=== PATIENT | male | born 1965 ===

== ENCOUNTER 2023-07-08 12:50 | Inpatient (IN) | payer MEDICAID, SELFPAY ==
[2023-07-08] VITALS (7 sets, daily range): BP systolic 130–152; BP diastolic 78–100; PULSE 89–115; RESP 16–20; TEMP 36.6–37.3; O2SAT 93–98; BMI 27.7
--- NOTE | 2023-07-08 | ECG_ITS ---
Test Reason : CHEST PAIN Blood Pressure : / mmHG Vent. Rate : 124 BPM Atrial Rate : 000 BPM P-R Int : 000 ms QRS Dur : 082 ms QT Int : 298 ms P-R-T Axes : 000 -35 -13 degrees QTc Int : 428 ms Atrial fibrillation with rapid ventricular response Left axis deviation Abnormal ECG No previous ECGs available Referred By: Preeti Pal Electronically Signed By:DAVID RABAGO MD
--- NOTE | ~2023-07-08 | XR_ITS ---
EXAMINATION: XR CHEST CLINICAL INFORMATION: Chest pain COMPARISON: None available. TECHNIQUE: 2 views of the chest were obtained. FINDINGS: The lungs are well-expanded without acute pneumonic process. Heart size is normal. There is bilateral parahilar increased pulmonary vascularity with haziness in both mid lungs suspicious for pulmonary congestion or edema. No pleural effusion seen. No gross bony abnormality. XR/XR chest 2V IMPRESSION: Suspect mild pulmonary vascular congestion or edema. No pleural effusion seen.
--- NOTE | 2023-07-08 13:11 | ED_ITS ---
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 He reports 1 or 2 days ago he got into a verbal altercation with a co-worker, he was very upset about this, he states that all of his symptoms began after this altercation. He has been experiencing a headache, diffusely throughout that is intermittent, dizziness, substernal chest pain, nausea without vomiting, generalized abdominal discomfort described as cramping, tactile fevers. He reports that he could not go to work today because he was still feeling this way. He denies any known sick contacts. Related Data Home Medications Medication Instructions Recorded Confirmed No Known Home Meds 07/08/23 07/08/23 Allergies Allergy/AdvReac Type Severity Reaction Status Date / Time Penicillins Allergy Rash Verified 07/08/23 13:16 Review of Systems 2 Review of Systems: Yes all other systems are reviewed and are negative PMFSH Past Medical History Attestation statement: The following information was validated with the patient. Source: old records reviewed Surgical History Previous back surgery Social History Social History Smoked in Last 30 Days: Yes Use of substances other than those prescribed or required for medical reasons: No Advance Directives: No Advance Directives Information Provided: No Physical Exam ED Vital Signs: Vital Signs - 24 hr 07/08/23 13:10 07/08/23 16:55 07/08/23 18:02 Temperature 98.1 F 97.9 F 99.1 F Pulse Rate 114 H 115 H 97 Pulse Rate [Left Apical] Respiratory Rate 18 16 20 Blood Pressure 135/78 152/100 H 130/92 H Pulse Oximetry 93 95 94 Oxygen Delivery Method Room Air Room Air Room Air 07/08/23 18:14 07/08/23 18:28 07/08/23 19:27 Temperature Pulse Rate 102 H 89 Pulse Rate [Left Apical] 96 Respiratory Rate 20 18 Blood Pressure Pulse Oximetry 98 Oxygen Delivery Method Room Air 07/08/23 20:05 Temperature 98.2 F Pulse Rate 112 H Pulse Rate [Left Apical] Respiratory Rate 20 Blood Pressure 131/78 Pulse Oximetry 96 Oxygen Delivery Method Room Air BMI result Body Mass Index 27.7 Appearance: Alert.?Oriented to person, place and time. No acute distress.?Normal affect. Eyes: Pupils equal, round and reactive to light.? EOMI. No nystagmus. ENT: Pharynx normal.??TM normal bilaterally Neck: Normal inspection.? Neck supple.? No cervical lymphadenopathy. ?No nuchal rigidity CVS: Heart sounds normal. Irregularly irregular heart rate and rhythm.? Pulses normal.?? Respiratory: No respiratory distress.? Lung sounds clear to auscultation bilaterally?? Abdomen: Soft and non-tender. Normoactive bowel sounds. No pulsatile mass.?? Skin: Skin warm and dry.? Normal skin color.? Normal skin turgor.?? Extremities: No lower extremity edema.? No calf ttp? Neuro: Moves all extremities spontaneously. Sensation intact bilaterally. CN II- XII intact. No focal neuro deficits. Ambulates with normal steady gait. Course Course Course Narrative: RME- 57 year old male presents for evaluation of feeling sick. He complains of headache and fevers. He is reporting a little depression. But he denies SI at this time. Plan for labs, viral swabs. He currently is not interested in speaking to anybody from the care team. Reevaluation(s) Reevaluation #1: Received EKG, indicates atrial fibrillation with RVR, ventricular rate of 124, QTC 428, no ST elevation, no ST depression. Patient denies any known history of atrial fibrillation, no prior EKGs available for review. ChadS-Vasc score 1, will initiate Eliquis, and trial diltiazem for rate control, anticipate admission to hospital, patient made aware of these findings. Time: 17:00 Reevaluation #2: Rate controlled with diltiazem, drip was initiated. Spoke with hospitalist, Dr. Dewitt accepts patient for admission to medicine service Time: 19:38 Medications Administered Generic Name Dose Route Start Last Admin Trade Name Freq PRN Reason Stop Dose Admin Diltiazem HCl 30 mg 07/08/23 21:00 07/08/23 21:38 Diltiazem Hcl 30 Mg Tablet PO 30 mg QID KAI Administration Protocol Diltiazem HCl 125 mg/ Sodium 125 mls @ 0 mls/hr 07/08/23 18:00 07/08/23 20:06 Chloride IVCONT 10 mg/hr .Q0M KAI 10 mls/hr Titration Protocol Per Protocol Discontinued Medications Generic Name Dose Route Start Last Admin Trade Name Nicolas PRN Reason Stop Dose Admin Apixaban 5 mg 07/08/23 17:22 07/08/23 17:36 Apixaban 5 Mg Tablet PO 07/08/23 17:23 5 mg ONCE ONE Administration Diltiazem HCl 20 mg 07/08/23 17:22 07/08/23 17:36 Diltiazem Hcl 50 Mg/10 Ml Vial IVPUSH 07/08/23 17:23 20 mg STAT STA Administration Medical Decision Making Medical Decision Making [facility] Narrative: Patient is a 57-year-old male who presents emergency department for evaluation of multiple complaints as per HPI, predominantly noting headache chest pain and nausea for 2-3 days. Symptoms began after getting into a verbal altercation while at work that have persisted since then. Will obtain CBC to evaluate for leukocytosis/ anemia, CMP and lipase to evaluate for abnormal electrolytes /abnormal renal function/ abnormal hepatic/biliary function, EKG and troponin to evaluate for ischemia/ACS. Chest x-ray to evaluate for consolidation/ infiltrate/ mass/ pulmonary congestion and Urinalysis. Differential Diagnosis Differential Diagnoses: The differential diagnosis associated with the presentation includes (Viral syndrome, stress reaction, ACS, arrhythmia, tension headache, less likely ICH, PE) Admission/Observation Consideration of admission/observation: Escalation of care including admission/observation considered (Admission, see course narrative) Consult Healthcare Provider Management of the patient was discussed with: Hospitalist Lab Data [facility] Lab Attestation statement: I reviewed the patient's lab results. (See course narrative) 07/08/23 13:25 07/08/23 13:25 Labs: Lab Results 07/08/23 07/08/23 07/08/23 Range/Units 13:25 17:27 17:28 WBC 5.7 (4.8-10.8) X10*3/uL RBC 4.99 (4.60-5.80) X10*6/uL Hgb 15.6 (14.0-18.0) g/dl Hct 46.1 (42.0-52.0) % MCV 92.4 (80.0-98.0) fL MCH 31.3 (27.0-33.0) pg MCHC 33.8 (31.0-36.0) g/dl RDW 12.5 (11.0-16.0) % Plt Count 131 L (160-400) X10*3/uL MPV 10.9 (9.4-12.4) fL Immature Gran % (Auto) 0.2 (0.0-0.4) % Neut % (Auto) 85.9 H (45-73) % Lymph % (Auto) 7.2 L (20-40) % [place] % (Auto) 6.5 (2-11) % Eos % (Auto) 0.0 (0-4) % Baso % (Auto) 0.2 (0-2) % Lymph # (Auto) 0.4 L (1.2-4.9) X10*3/uL [place] # (Auto) 0.4 (0.1-1.2) X10*3/uL Eos # (Auto) 0.0 (0.0-0.4) X10*3/uL Baso # (Auto) 0.0 (0.0-0.2) X10*3/uL Abs Immat Gran (auto) 0.01 (0.00-0.03) X10*3/uL Absolute Neuts (auto) 4.9 (2.0-8.3) x10*3/uL Absolute Nucleated RBC 0.000 (0.0-0.012) X10*3/uL Nucleated RBC % (auto) 0.0 (0.0-0.2) /100WBC PT 15.1 H (11.1-13.3) SEC INR 1.2 H (0.9-1.1) Sodium 141 (135-145) mmol/L Potassium 3.9 (3.3-5.1) mmol/L Chloride 107 (96-108) mmol/L Carbon Dioxide 27 (22-29) mmol/L Anion Gap 11 L (12-20) BUN 17 H (9-16) mg/dL Creatinine 1.20 (0.5-1.4) mg/dL Estim Creat Clear Calc 77.6 Estimated GFR > 60 Random Glucose 90 (60-115) mg/dL Calcium 8.8 (8.4-10.2) mg/dL Magnesium 2.2 (1.6-2.6) mg/dL Troponin I High Sens 5.5 (<3.5-35.0) ng/L B-Natriuretic Peptide 210 H (<100) pg/mL TSH 0.53 (0.32-4.0) uIU/mL COVID-19 (CHRISTOPHER) Negative (Negative) COVID-19 Clin Com See Note Influenza Type A (SFOIYA) Negative (Negative) Influenza Type B (SOFIYA) Negative (Negative) Influenza A & B Note See Note Independent Interpretation I performed an independent interpretation of an: EKG (See course narrative) and Plain X-Ray (I personally interpreted XR and agree with radiologist impression) Radiology Impression Discussion of test interpretation with radiology: I have reviewed the radiologist's reading. Radiologist Impression: XR/XR chest 2V IMPRESSION: Suspect mild pulmonary vascular congestion or edema. No pleural effusion seen. Critical Care Time Critical Care Time Critical Care Time: Yes Total Critical Care Time: 45 Attestation: I personally attest to this critical care time spent taking care of the patient exclusive of all other billable procedures was approximately 45 minutes including initial evaluation of patient, ordering tests, x-ray interpretation, EKG interpretation, medical consultation, documentation, re-evaluation. Discharge Plan Discharge Clinical Impression: Atrial fibrillation with rapid ventricular response Patient Disposition: Admitted As Inpatient
[2023-07-08 13:30] LABS: MANUAL DIFF FLAG NO
[2023-07-08 13:35] LABS: Basophils Percent Auto 0.2 % (0-2); Hematocrit 46.1 % (42.0-52.0); Hemoglobin 15.6 g/dl (14.0-18.0); Imm Gran Abs Auto 0.01 X10*3/uL (0.00-0.03); Imm Gran Pct Auto 0.2 % (0.0-0.4); Lymphocytes Absolute Auto 0.4 X10*3/uL (1.2-4.9); Lymphocytes Percent Auto 7.2 % (20-40); Mean Corpuscular HGB Conc 33.8 g/dl (31.0-36.0); Mean Corpuscular Hemoglobin 31.3 pg (27.0-33.0); Mean Corpuscular Volume 92.4 fL (80.0-98.0); Mean Platelet Volume 10.9 fL (9.4-12.4); Monocytes Absolute Auto 0.4 X10*3/uL (0.1-1.2); Monocytes Percent Auto 6.5 % (2-11); Neutrophils Absolute Auto 4.9 x10*3/uL (2.0-8.3); Neutrophils Percent Auto 85.9 % (45-73); Platelet Count 131 X10*3/uL (160-400); Red Blood Count 4.99 X10*6/uL (4.60-5.80); Red Cell Distribution Width 12.5 % (11.0-16.0); White Blood Count 5.7 X10*3/uL (4.8-10.8)
[2023-07-08 13:44] LABS: Anion Gap 11 (12-20); Blood Urea Nitrogen 17 mg/dL (9-16); Calcium 8.8 mg/dL (8.4-10.2); Carbon Dioxide 27 mmol/L (22-29); Chloride 107 mmol/L (96-108); Creatinine Clr Calc Pharmacy 77.6; Estimated Glomerular Filt Rate > 60; Glucose Random 90 mg/dL (60-115); Potassium 3.9 mmol/L (3.3-5.1); Sodium 141 mmol/L (135-145)
[2023-07-08 13:48] LABS: IDNOW Serial# 08D9AD1C; IDNOW Serial# 152EDE1D; Influenza A Negative (Negative); Influenza B2 Negative (Negative)
[2023-07-08 13:49] LABS: COVID-19 Test Negative (Negative)
[2023-07-08] MEDS: Apixaban 5 MG TABLET PO (17:36)
[2023-07-08] MEDS: dilTIAZem HCL 50 MG/10 ML VIAL 20 MG IVPUSH (17:36)
--- NOTE | 2023-07-08 17:38 | PC.NURSE ---
pt a&ox3, pt c/o chest pain, ekg performed, pt noted to be in afib, iv inserted, labs drawn, pt medicated per order, call [place] within reach, will continue to monitor.
[2023-07-08 17:43] LABS: INTERNATIONAL NORM RATIO 1.2 (0.9-1.1); Prothrombin Time 15.1 SEC (11.1-13.3)
[2023-07-08 17:58] LABS: B Type Natriuretic Peptide 210 pg/mL (<100)
[2023-07-08 17:58] LABS: Troponin-I High Sensitivity 5.5 ng/L (<3.5-35.0)
[2023-07-08 18:12] LABS: TSH reflex Free T4 0.53 uIU/mL (0.32-4.0)
[2023-07-08] MEDS: dilTIAZem HCL 125 MG in 0.9 % Sodium Chloride 100 ML 10 MG IVCONT (18:14)
--- NOTE | 2023-07-08 18:15 | PC.NURSE ---
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
[2023-07-08 18:16] LABS: Magnesium 2.2 mg/dL (1.6-2.6)
--- NOTE | 2023-07-08 18:29 | PC.NURSE ---
dilt drip stopped, pts hr ranging from mid 80s-100. will continue to monitor
--- NOTE | 2023-07-08 19:26 | PC.NURSE ---
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
--- NOTE | 2023-07-08 20:07 | PC.NURSE ---
dilt drip restarted @ 10 after speaking with Ed provider, pts hr has been ranging low 100s-120. will continue to monitor patient.
--- NOTE | 2023-07-08 20:40 | P.HPHOSP_ITS ---
History of Present Illness Date of Service: 07/08/23 Chief Complaint: Palpitations This is a 57-year-old male with no pertinent past medical history and not on prescription medications who presents to the emergency department for evaluation of palpitations. Patient is Romansh speaking and history was obtained with the help of a head stock operator. Patient states he has been having palpitations that started 2 days prior to presentation. It has been constant over the last couple of days. His previous episode was about 3 years ago when he was traveling and had too much caffeine. He denies taking anything for high blood pressure. No history of congestive heart failure, stroke or diabetes. No fever, chills, chest discomfort, shortness of breath, abdominal pain, changes in urinary or bowel habits. States he felt weak and dizzy due to the palpitations and hence could not go to work. In the emergency department, patient was found to be in AFib with RVR and was initiated on IV diltiazem drip Review of Systems 2 Constitutional: Constitutional: Reports lethargy and Reports weakness Cardiovascular: Cardiovascular: Reports rapid heart rate Respiratory: Respiratory: Reports no additional respiratory complaints Gastrointestinal: Gastrointestinal: Reports no additional gastrointestinal complaints Genitourinary: Genitourinary: Reports no additional male genitourinary complaints Neurologic: Reports weakness PMFSH Pertinent family history: No family history of early CAD Surgical History Previous back surgery Social History Smoked in Last 30 Days: Yes Use of substances other than those prescribed or required for medical reasons: No Advance Directives: No Advance Directives Information Provided: No Meds Allergies Allergy/AdvReac Type Severity Reaction Status Date / Time Penicillins Allergy Rash Verified 07/08/23 13:16 Active Medications: Current Medications Diltiazem HCl 125 mg/ Sodium (Chloride) 125 mls @ 0 mls/hr IVCONT .Q0M [facility]; Protocol Last Titration: 07/08/23 20:06 Dose: 10 mg/hr, 10 mls/hr Home Medications Medication Instructions Recorded Confirmed Last Taken Type No Known Home Meds 07/08/23 07/08/23 Unknown History Physical Exam 2 Vital Signs and Narrative: Vital Signs: Last Vital Signs Temp 98.2 F 07/08/23 20:05 Pulse 112 H 07/08/23 20:05 Resp 20 07/08/23 20:05 BP 131/78 07/08/23 20:05 Pulse Ox 96 07/08/23 20:05 O2 Del Method Room Air 07/08/23 20:05 BMI result Body Mass Index 27.7 Middle-aged male lying in bed in no distress Neck supple, no JVD Irregularly irregular, S1-S2 heard Regular breath sounds bilaterally, no wheezing or crackles appreciated Abdomen soft nontender, no guarding, no rigidity Patient is awake, alert and oriented to self, place, time and person ; no focal motor deficit Psych: Normal mood No pedal edema Results Labs 07/08/23 13:25 07/08/23 13:25 Labs: Laboratory Results - last 24 hr 07/08/23 07/08/23 07/08/23 13:25 17:27 17:28 MCV 92.4 MCH 31.3 MCHC 33.8 RDW 12.5 Plt Count 131 L MPV 10.9 Immature Gran % (Auto) 0.2 Neut % (Auto) 85.9 H Lymph % (Auto) 7.2 L [place] % (Auto) 6.5 Eos % (Auto) 0.0 Baso % (Auto) 0.2 Lymph # (Auto) 0.4 L [place] # (Auto) 0.4 Eos # (Auto) 0.0 Baso # (Auto) 0.0 Abs Immat Gran (auto) 0.01 Absolute Neuts (auto) 4.9 Absolute Nucleated RBC 0.000 Nucleated RBC % (auto) 0.0 PT 15.1 H INR 1.2 H Anion Gap 11 L Estim Creat Clear Calc 77.6 Estimated GFR > 60 Random Glucose 90 Calcium 8.8 Magnesium 2.2 B-Natriuretic Peptide 210 H TSH 0.53 COVID-19 (CHRISTOPHER) Negative COVID-19 Clin Com See Note Influenza Type A (SOFIYA) Negative Influenza Type B (SOFIYA) Negative Influenza A & B Note See Note Imaging Radiologist's Impressions: Impressions Chest X-Ray 07/08/23 17:35 IMPRESSION: Suspect mild pulmonary vascular congestion or edema. No pleural effusion seen. Assessment and Plan (1) Atrial fibrillation with rapid ventricular response: Status: Acute Plan This is a 57-year-old male with no pertinent past medical history and not on prescription medications who presents to the emergency department for evaluation of palpitations. #. AFib with RVR, new diagnosis: Will admit patient with cardiac monitoring. Currently on IV diltiazem drip. Will initiate p.o. diltiazem. Obtaining echocardiogram and consulting Cardiology, appreciate assistance. Chads Vasc score 0. TSH within normal limits DVT prophylaxis: Lovenox Full code Admit as inpatient and will require two night minimum hospital stay for monitoring of heart rate (as above), which is not possible in a lesser acute setting. Specialist consult pending Quality Stroke Does the patient have a stroke diagnosis?: No VTE Prior VTE?: No VTE Risk Level:: Medical - moderate - high VTE Device Contraindication: Treatment Not Indicated VTE Drug Contraindication: N/A - Med Ordered
--- NOTE | 2023-07-08 21:06 | PHA.MEDREC ---
Pharmacy Consult ? Medication Reconciliation Pharmacy has completed the medication reconciliation. Utilized an interrupter to complete med rec. Patient report to this [facility] that he takes medication but unsure and will text family to find out. Patient reported to provider that he takes no medication at home and has no health problem. Lesly Jones, PharmD
[2023-07-08] MEDS: dilTIAZem HCL 30 MG TABLET PO (21:38)
[2023-07-09 04:22] VITALS: BP 120/81; PULSE 97; RESP 18; TEMP 37.5; O2SAT 93
[2023-07-09 04:54] VITALS: BP 112/69; PULSE 109; RESP 20; TEMP 37.4; O2SAT 91
[2023-07-09] MEDS: dilTIAZem HCL 125 MG in 0.9 % Sodium Chloride 100 ML 10 MG IVCONT (06:12)
--- NOTE | 2023-07-09 07:00 | CA_ITS ---
Transthoracic Echocardiogram Patient (Last, First, Middle): Kenrick Adrian L Gender: Male Date of : 1965 Age: 57 Procedure Date: 07/09/2023 Procedure Type: Transthoracic E[place] [facility] [place]: 185.42 cm Weight: 95.26 kg BSA: 2.20 m2 Heart Rate: 93 bpm BP: 112 / 69 mmHg Electronics Specialist: Referring MD: Chuy Dewitt MD Symptoms: afib with rvr Study Quality: Adequate ECG Rhythm: Atrial Fibrillation Conclusions: - 1. Mildly to moderately reduced LV ejection fraction 40-45% 2. Normal cardiac valvular Dopplers 3. Normal RV systolic pressure Findings Left Ventricle Normal left ventricular cavity size. There is mildly increased left ventricular wall thickness. The left ventricular systolic function is mild to moderately decreased. Diastolic function is indeterminate on the basis of available data. Right Ventricle Normal right ventricular cavity size. There is borderline right ventricular systolic function. Atria The left atrium is normal in size. Interatrial shunt cannot be excluded. The right atrium is normal in size. Aortic Valve Normal aortic valve structure and function. There is no aortic valve stenosis. There is no aortic valve regurgitation. Mitral Valve Normal mitral valve structure and function. There is trace mitral valve regurgitation. There is no mitral valve stenosis. Pulmonic Valve The pulmonic valve is likely normal. Tricuspid Valve Normal tricuspid valve structure. There is trace tricuspid valve regurgitation. The right ventricular systolic pressure is 18 mmHg. Normal right atrial pressure. There is no evidence of pulmonary hypertension. Great Vessels All visible segments of the aorta are normal in size. The pulmonary artery was not well visualized. Venous The inferior vena cava is normal in size and collapses greater than 50% with inspiration. Pericardium/Pleural There is no evidence of pericardial effusion. Prior Study Comparison No prior study available for comparison. Measurements 2D Linear Measurements IVSd: 1.23 0.6-0.9/0.6-1.0 cm LVIDd: 4.33 3.9-5.3/4.2-5.9 cm LVIDd Index: 1.97 2.4-3.2/2.2-3.1 cm/m2 LVIDs: 3.27 2.0-3.6 cm LVPWd: 1.20 0.7-1.1 cm LA Diam: 3.50 2.7-3.8/3.0-4.0 cm LAIDs Index: 1.59 1.5-2.3 cm/m2 LV Mass: 323.48 67-162/88-224 g LV Mass Index: 147.04 43-95/49-115 g/m2 2D Systolic Function EF 4C: 47.40 >55% Mitral Valve MV Pk E: 0.87 MV Decel Time: 145.00 E'Lateral: 15.40 E'Medial: 8.70 E/E' Med: 10.00 E/E' Lat: 5.70 PHT: 42.00 MVA PHT: 5.24 Decel [place]: 6.04 Aortic Valve AoV Pk Jayden: 1.35 AoV Mn Jayden: 0.90 AoV VTI: 0.21 AoV Pk Grad: 7.00 Aov Mn Grad: 4.00 LVOT LVOT Pk Jayden: 0.82 LVOT Mn Jayden: 0.52 LVOT VTI: 0.14 LVOT Pk Grad: 3.00 LVOT Mn Grad: 1.00 Diastolic Function MV Pk E: 0.87 E'Medial: 8.70 E/E' Med: 10.00 E' Laterial: 15.40 E/E' Lat: 5.70 Right Ventricle TAPSE (mm): 17.00 TVS' Jayden: 12.60 Tricuspid Valve TR Pk Jayden: 1.95 TR Pk Grad: 15.00 RA Press: 3.00 RVSP: 18.00 Pulmonary Valve PV Pk Jayden: 0.95 Peak PV Grad: 4.00 AL Pk Jayden: 0.94 Updated in Other Vendor System with Status of Final Shahbaz Stephenson MD electronically signed on 07/09/2023 12:18:46 PM with status of Final
[2023-07-09 07:12] LABS: Anion Gap 12 (12-20); Blood Urea Nitrogen 16 mg/dL (9-16); Calcium 8.2 mg/dL (8.4-10.2); Carbon Dioxide 23 mmol/L (22-29); Chloride 105 mmol/L (96-108); Creatinine Clr Calc Pharmacy 100.2; Estimated Glomerular Filt Rate > 60; Glucose Random 178 mg/dL (60-115); Potassium 3.4 mmol/L (3.3-5.1); Sodium 137 mmol/L (135-145)
[2023-07-09 07:17] LABS: Hematocrit 41.6 % (42.0-52.0); Hemoglobin 14.3 g/dl (14.0-18.0); Mean Corpuscular HGB Conc 34.4 g/dl (31.0-36.0); Mean Corpuscular Hemoglobin 31.4 pg (27.0-33.0); Mean Corpuscular Volume 91.4 fL (80.0-98.0); Mean Platelet Volume 11.1 fL (9.4-12.4); Platelet Count 108 X10*3/uL (160-400); Red Blood Count 4.55 X10*6/uL (4.60-5.80); Red Cell Distribution Width 12.6 % (11.0-16.0); White Blood Count 5.8 X10*3/uL (4.8-10.8)
[2023-07-09 07:51] VITALS: BP 99/66; PULSE 98; RESP 18; TEMP 36.8; O2SAT 92
--- NOTE | 2023-07-09 09:14 | MHC.CM.PN ---
CM ATTEMPTED TO MEET W/PT HOWEVR PT W/ECCHO TECH, CM WILL REVISIT.
[2023-07-09] MEDS: dilTIAZem HCL 30 MG TABLET PO (09:43)
--- NOTE | 2023-07-09 11:02 | HO.PM.IMPN ---
Subjective Subjective Date of Service: 07/09/23 Interval History: This history was taken in Upper Sorbian from the patient. Feels better, palpitations less severe Denies chest pain Denies EtOH Review of Systems Review of Systems: Yes all other systems are reviewed and are negative Physical Exam Vital Signs: Vital Signs: Last Vital Signs Temp 98.2 F 07/09/23 07:51 Pulse 98 07/09/23 07:51 Resp 18 07/09/23 07:51 BP 99/66 07/09/23 07:51 Pulse Ox 92 07/09/23 07:51 O2 Del Method Room Air 07/09/23 07:51 BMI result Body Mass Index 27.7 Gen: in no acute distress HEENT: sclera anicteric, moist mucus membranes Neck: supple Lungs: clear to auscultation bilaterally Heart: irregular, no murmurs Abd: soft, non-tender, non-distended Ext: no edema Skin: warm/well-perfused Neuro: alert and oriented x3, no focal findings Psych: appropriate affect Objective Data Active Medications Acetaminophen (Acetaminophen 325 Mg Tablet) 650 mg PO Q6H PRN PRN Reason: Pain, Mild (Pain Scale 1-3) Diltiazem HCl (Diltiazem Hcl 30 Mg Tablet) 30 mg PO QID [facility]; Protocol Last Admin: 07/09/23 09:43 Dose: 30 mg Documented By: RAMAKRISHNA Enoxaparin Sodium (Enoxaparin Sodium 40 Mg/0.4 Ml Syringe) 40 mg SUBCUT Q24H [facility] Diltiazem HCl 125 mg/ Sodium (Chloride) 125 mls @ 0 mls/hr IVCONT .Q0M [facility]; Protocol Last Admin: 07/09/23 06:12 Dose: 10 mg/hr, 10 mls/hr Documented By: LAUREN Melatonin (Melatonin 3 Mg Tablet) 6 mg PO BEDTIME PRN PRN Reason: Insomnia Ondansetron HCl (Ondansetron Hcl 4 Mg/2 Ml Vial) 4 mg IVPUSH Q8H PRN PRN Reason: Nausea and Vomiting Sodium Chloride (0.9 % Sodium Chloride Flush 3 Ml Syringe) 3 ml IVFLUSH QSHIFT [facility] Last Admin: 07/09/23 09:45 Dose: Not Given Documented By: RAMAKRISHNA Non-Admin Reason: IV Running Labs 07/09/23 06:19 07/09/23 06:19 Labs: Laboratory Results - last 24 hr 07/08/23 07/08/23 07/08/23 13:25 17:27 17:28 MCV 92.4 MCH 31.3 MCHC 33.8 RDW 12.5 Plt Count 131 L MPV 10.9 Immature Gran % (Auto) 0.2 Neut % (Auto) 85.9 H Lymph % (Auto) 7.2 L [place] % (Auto) 6.5 Eos % (Auto) 0.0 Baso % (Auto) 0.2 Lymph # (Auto) 0.4 L [place] # (Auto) 0.4 Eos # (Auto) 0.0 Baso # (Auto) 0.0 Abs Immat Gran (auto) 0.01 Absolute Neuts (auto) 4.9 Absolute Nucleated RBC 0.000 Nucleated RBC % (auto) 0.0 PT 15.1 H INR 1.2 H Anion Gap 11 L Estim Creat Clear Calc 77.6 Estimated GFR > 60 Random Glucose 90 Calcium 8.8 Magnesium 2.2 B-Natriuretic Peptide 210 H TSH 0.53 COVID-19 (CHRISTOPHER) Negative COVID-19 Clin Com See Note Influenza Type A (SOFIYA) Negative Influenza Type B (SOFIYA) Negative Influenza A & B Note See Note 07/09/23 06:19 MCV 91.4 MCH 31.4 MCHC 34.4 RDW 12.6 Plt Count 108 L MPV 11.1 Immature Gran % (Auto) Neut % (Auto) Lymph % (Auto) [place] % (Auto) Eos % (Auto) Baso % (Auto) Lymph # (Auto) [place] # (Auto) Eos # (Auto) Baso # (Auto) Abs Immat Gran (auto) Absolute Neuts (auto) Absolute Nucleated RBC 0.000 Nucleated RBC % (auto) 0.0 PT INR Anion Gap 12 Estim Creat Clear Calc 100.2 Estimated GFR > 60 Random Glucose 178 H Calcium 8.2 L D Magnesium B-Natriuretic Peptide TSH COVID-19 (CHRISTOPHER) COVID-19 Clin Com Influenza Type A (SOFIYA) Influenza Type B (SOFIYA) Influenza A & B Note Assessment and Plan (1) Atrial fibrillation with rapid ventricular response: Status: Acute Plan 57yo M with no chronic conditions admitted for new-onset AF/RVR AF/RVR - diltiazem drip, TTE + Cardiology consult pending, no AC as [id number] low VTE ppx - LMWH dispo - eventual home In my clinical judgment, the patient requires continued inpatient hospitalization for the following reasons: IV rate control Total time managing care of this patient today: 35 minutes. Quality Stroke Does the patient have a stroke diagnosis?: No VTE Prior VTE?: No VTE Risk Level:: Medical - moderate - high VTE Device Contraindication: Treatment Not Indicated VTE Drug Contraindication: N/A - Med Ordered
--- NOTE | 2023-07-09 11:08 | P.CONCA_ITS ---
History of Present Illness History of Present Illness Date of Service: 07/09/23 Requesting physician: Daryl Echols Consult reason: atrial fibrillation Chief complaint: Palpitations Narrative: I was consulted to see Kenrick in cardiology consultation today for new onset atrial fibrillation. History was obtained with help of a translator/interpreter at bedside. Patient usually does not see a physician. He has had prior history of hypertension which she has modified and treated with modification of his behavior with caffeine intake. He says blood pressure is generally well controlled. He said work he got really angry at his co-worker because he was harassing him. Then he started not feeling well. This was 2 days ago in the morning. He said he was feeling not well and then was feeling his heart racing rapidly and associated with some chest pressure and shortness of breath. He then went home and waited for him to calmed down and his heart rate to improve but the next day did not feel right and he decided to come to the emergency room. He came to the Emergency was noted to be in atrial fibrillation rapid ventricular response. This is a new finding for him. Patient says he feels better now after being started on IV Cardizem drip and has been on Cardizem drip overnight with rate better controlled. He denies any shortness of breath or chest pressure. Denies any lightheadedness, syncope. He was given Eliquis yesterday but this morning is on Lovenox DVT prophylaxis. He has no prior history of diabetes, congestive heart failure, coronary artery disease or stroke. Review of Systems 2 Constitutional: Constitutional: Reports lethargy and Reports other Eyes: Eyes: Reports no additional eye complaints Cardiovascular: Cardiovascular: Reports chest pain at rest, Denies syncope, Denies leg edema, Denies lightheadedness, Denies Loss of Consciousness, Reports palpitations and Reports dyspnea on exertion Respiratory: Respiratory: Reports dyspnea on exertion Gastrointestinal: Gastrointestinal: Reports no additional gastrointestinal complaints Genitourinary: Genitourinary: Reports no additional male genitourinary complaints Musculoskeletal: Musculoskeletal: Reports no additional musculoskeletal complaints Integumentary/Breasts: Skin/Breast: Reports system reviewed and no additional complaints, except as docu Neurologic: Denies syncope Psychiatric: Psychiatric: Reports no additional psychiatric complaints Endocrine: Endocrine: Reports palpitations PMFSH Surgical History Surgical History Previous back surgery Social History Social History Household Members: None Housing: Other Housing Other:: rents a room Do you presently have visiting nurse or other home services: No Patient Tobacco Use Status: Current everyday Tobacco user Tobacco use type: Cigarette Cigarettes Per Day: 10 Years Smoked: 40 Smoked in Last 30 Days: Yes e-Cigarette/Vaping Use: Currently Using Patient Interested in Nicotine Replacement: Yes Patient Given Instructions on How to Stop Smoking: Yes Date Education Initiated: 07/09/23 Second Hand Smoke Exposure: No Use of substances other than those prescribed or required for medical reasons: No Have you been hit, kicked, punched, or otherwise hurt by someone within the past year? If so, by whom?: No Do you feel safe in your current relationship?: No Current Relationship Is there a partner from a previous relationship who is making you feel unsafe now?: No Are you made to feel afraid or neglected: No Advance Directives: No Advance Directives Information Provided: No Advance Directives on File: No Do you have thoughts of harming others: None Do you have a plan to hurt others: No Plan Recently lost weight without trying: No How much weight loss: Not applicable Eating poorly because of decreased appetite: No Nutrition screen score: 0 Nutrition Risks: No Nutritional Risk Poor oral hygiene: No Meds Allergies Allergy/AdvReac Type Severity Reaction Status Date / Time Penicillins Allergy Rash Verified 07/08/23 13:16 Active Medications: Current Medications Acetaminophen (Acetaminophen 325 Mg Tablet) 650 mg PO Q6H PRN PRN Reason: Pain, Mild (Pain Scale 1-3) Diltiazem HCl (Diltiazem Hcl 30 Mg Tablet) 30 mg PO QID [facility]; Protocol Last Admin: 07/09/23 09:43 Dose: 30 mg Enoxaparin Sodium (Enoxaparin Sodium 40 Mg/0.4 Ml Syringe) 40 mg SUBCUT Q24H KAI Diltiazem HCl 125 mg/ Sodium (Chloride) 125 mls @ 0 mls/hr IVCONT .Q0M [facility]; Protocol Last Admin: 07/09/23 06:12 Dose: 10 mg/hr, 10 mls/hr Melatonin (Melatonin 3 Mg Tablet) 6 mg PO BEDTIME PRN PRN Reason: Insomnia Ondansetron HCl (Ondansetron Hcl 4 Mg/2 Ml Vial) 4 mg IVPUSH Q8H PRN PRN Reason: Nausea and Vomiting Sodium Chloride (0.9 % Sodium Chloride Flush 3 Ml Syringe) 3 ml IVFLUSH QSHIFT [facility] Last Admin: 07/09/23 09:45 Dose: Not Given Home Medications Medication Instructions Recorded Confirmed Last Taken Type No Known Home Meds 07/08/23 07/08/23 Unknown History Physical Exam 2 Vital Signs: Vital Signs: Last Vital Signs Temp 98.2 F 07/09/23 07:51 Pulse 98 07/09/23 07:51 Resp 18 07/09/23 07:51 BP 99/66 07/09/23 07:51 Pulse Ox 92 07/09/23 07:51 O2 Del Method Room Air 07/09/23 07:51 BMI result Body Mass Index 27.7 Const: General: cooperative, comfortable, no acute distress, well developed, alert and awake Nutritional Appearance: average body habitus O rientation/consciousness: patient oriented x3 Limitations: no limitations HEENT: Head: Yes normocephalic and Yes atraumatic Neck: Neck: Yes trachea midline, Yes supple and Yes no JVD Resp: Effort & Inspection: normal respiratory effort Auscultation: clear to auscultation bilaterally Cardio: Jugular venous distension: no JVD Rhythm: abnormal rhythm irregularly irregular Heart sounds: S1 normal heart sound present, S2 normal heart sound present, no click, no gallops, no murmurs and no rubs GI: Auscultation: normal bowel sounds Skin: General skin exam: no rashes or lesions noted Neuro: General: patient oriented x3 and no focal motor deficits Extrem: General: Yes no clubbing, cyanosis or edema Objective Labs and Meds 07/09/23 06:19 07/09/23 06:19 Lab results: Laboratory Results - last 24 hr 07/08/23 07/08/23 07/08/23 13:25 17:27 17:28 WBC 5.7 RBC 4.99 Hgb 15.6 Hct 46.1 MCV 92.4 MCH 31.3 MCHC 33.8 RDW 12.5 Plt Count 131 L MPV 10.9 Immature Gran % (Auto) 0.2 Neut % (Auto) 85.9 H Lymph % (Auto) 7.2 L [place] % (Auto) 6.5 Eos % (Auto) 0.0 Baso % (Auto) 0.2 Lymph # (Auto) 0.4 L [place] # (Auto) 0.4 Eos # (Auto) 0.0 Baso # (Auto) 0.0 Abs Immat Gran (auto) 0.01 Absolute Neuts (auto) 4.9 Absolute Nucleated RBC 0.000 Nucleated RBC % (auto) 0.0 PT 15.1 H INR 1.2 H Sodium 141 Potassium 3.9 Chloride 107 Carbon Dioxide 27 Anion Gap 11 L BUN 17 H Creatinine 1.20 Estim Creat Clear Calc 77.6 Estimated GFR > 60 Random Glucose 90 Calcium 8.8 Magnesium 2.2 Troponin I High Sens 5.5 B-Natriuretic Peptide 210 H TSH 0.53 COVID-19 (CHRISTOPHER) Negative COVID-19 Clin Com See Note Influenza Type A (SOFIYA) Negative Influenza Type B (SOFIYA) Negative Influenza A & B Note See Note 07/09/23 06:19 WBC 5.8 RBC 4.55 L Hgb 14.3 Hct 41.6 L MCV 91.4 MCH 31.4 MCHC 34.4 RDW 12.6 Plt Count 108 L MPV 11.1 Immature Gran % (Auto) Neut % (Auto) Lymph % (Auto) [place] % (Auto) Eos % (Auto) Baso % (Auto) Lymph # (Auto) [place] # (Auto) Eos # (Auto) Baso # (Auto) Abs Immat Gran (auto) Absolute Neuts (auto) Absolute Nucleated RBC 0.000 Nucleated RBC % (auto) 0.0 PT INR Sodium 137 Potassium 3.4 Chloride 105 Carbon Dioxide 23 Anion Gap 12 BUN 16 Creatinine 0.93 Estim Creat Clear Calc 100.2 Estimated GFR > 60 Random Glucose 178 H Calcium 8.2 L D Magnesium Troponin I High Sens B-Natriuretic Peptide TSH COVID-19 (CHRISTOPHER) COVID-19 Clin Com Influenza Type A (OSFIYA) Influenza Type B (SOFIYA) Influenza A & B Note EKG shows atrial fibrillation rapid ventricular response Imaging Radiologist's impression: Impressions Chest X-Ray 07/08/23 17:35 IMPRESSION: Suspect mild pulmonary vascular congestion or edema. No pleural effusion seen. Assessment and Plan (1) Atrial fibrillation with rapid ventricular response: Status: Acute Highly symptomatic new onset atrial fibrillation rapid ventricular response, most likely triggered by his emotional outburst. He is prior history of hypertension although currently his blood pressure is well controlled and he does not see a physician or on a regular basis. Echo was done at bedside, will review it. I think patient can be discharged home as his symptoms have improved with rate control and would start him on Toprol-XL 50 mg b.i.d. or 100 mg daily and Xarelto 20 mg daily. Eventually plan for rhythm control. This was discussed with him. We discussed pathophysiology of atrial fibrillation and cardiac dysfunction related to it. He showed understanding. Advised to avoid emotional outburst and participate in stress mitigation strategies. Avoidance of stimulants was discussed. He understands agrees. Will set up for outpatient workup Thank you for allowing me to partake in his care Procedures Date of Service Date of Service: 07/09/23
[2023-07-09 11:15] VITALS: BP 91/67; PULSE 97; RESP 16; TEMP 36.8; O2SAT 94
[2023-07-09] MEDS: Metoprolol Succinate ER 50 MG TAB.ER.24H PO (12:18)
--- NOTE | 2023-07-09 12:31 | PM.DS ---
DS: Providers Provider Date of Service: 07/09/23 Date of admission: 07/08/23 21:20 Date of discharge: 07/09/23 Primary care physician: None Physician Consults: 07/08/23 20:40 Consult to Cardiology Routine [place] [facility] [place] [facility] Reason for consultation: new onset afib with rvr Has provider been notified: Yes DS: Diagnosis Discharge Diagnosis (1) Atrial fibrillation with rapid ventricular response: Status: Acute (2) Heart failure with reduced ejection fraction: Status: Acute DS: Summary Hospital Course Hospital Course: From the history and physical by the admitting hospitalist, Maira Dewitt MD, 07/08/23: This is a 57-year-old male with no pertinent past medical history and not on prescription medications who presents to the emergency department for evaluation of palpitations. Patient is Hungarian speaking and history was obtained with the help of a educational sign language interpreter. Patient states he has been having palpitations that started 2 days prior to presentation. It has been constant over the last couple of days. His previous episode was about 3 years ago when he was traveling and had too much caffeine. He denies taking anything for high blood pressure. No history of congestive heart failure, stroke or diabetes. No fever, chills, chest discomfort, shortness of breath, abdominal pain, changes in urinary or bowel habits. States he felt weak and dizzy due to the palpitations and hence could not go to work. In the emergency department, patient was found to be in AFib with RVR and was initiated on IV diltiazem drip He was admitted to the telemetry unit. Rate control was achieved with IV diltiazem drip and he was transitioned to PO metoprolol succinate. He was started on rivaroxaban for anticoagulation with eventual plan for rhythm control per sales consultant insurance. TTE showed mildly reduced LVEF 40-45%, likely tachycardia-mediated. He [place] [facility] [place]2 [place] and will need to establish primary care as well. Time Attestation Total time managing care of this patient today: 35 mintues. Discharge coordination time: Greater than 30 minutes Quality: Safe Use of Opioids Does Pt have an Active Cancer Diagnosis on the Problem List?: No Quality: Stroke Does the patient have a stroke diagnosis?: No Physical Exam Vital Signs: Vital Signs: Last Vital Signs Temp 98.2 F 07/09/23 11:15 Pulse 97 07/09/23 11:15 Resp 16 07/09/23 11:15 BP 91/67 07/09/23 11:15 Pulse Ox 94 07/09/23 11:15 O2 Del Method Room Air 07/09/23 11:15 BMI result Body Mass Index 27.7 Gen: in no acute distress HEENT: sclera anicteric, moist mucus membranes Neck: supple Lungs: clear to auscultation bilaterally Heart: irregular, no murmurs Abd: soft, non-tender, non-distended Ext: no edema Skin: warm/well-perfused Neuro: alert and oriented x3, no focal findings Psych: appropriate affect DS: Data Data Completed and Pending Completed studies during hospitalization [Text1]: Laboratory Results WBC 5.8 X10*3/uL (4.8-10.8) 07/09/23 06:19 RBC 4.55 X10*6/uL (4.60-5.80) L 07/09/23 06:19 Hgb 14.3 g/dl (14.0-18.0) 07/09/23 06:19 Hct 41.6 % (42.0-52.0) L 07/09/23 06:19 MCV 91.4 fL (80.0-98.0) 07/09/23 06:19 MCH 31.4 pg (27.0-33.0) 07/09/23 06:19 MCHC 34.4 g/dl (31.0-36.0) 07/09/23 06:19 RDW 12.6 % (11.0-16.0) 07/09/23 06:19 Plt Count 108 X10*3/uL (160-400) L 07/09/23 06:19 MPV 11.1 fL (9.4-12.4) 07/09/23 06:19 Immature Gran % (Auto) 0.2 % (0.0-0.4) 07/08/23 13:25 Neut % (Auto) 85.9 % (45-73) H 07/08/23 13:25 Lymph % (Auto) 7.2 % (20-40) L 07/08/23 13:25 [place] % (Auto) 6.5 % (2-11) 07/08/23 13:25 Eos % (Auto) 0.0 % (0-4) 07/08/23 13:25 Baso % (Auto) 0.2 % (0-2) 07/08/23 13:25 Lymph # (Auto) 0.4 X10*3/uL (1.2-4.9) L 07/08/23 13:25 [place] # (Auto) 0.4 X10*3/uL (0.1-1.2) 07/08/23 13:25 Eos # (Auto) 0.0 X10*3/uL (0.0-0.4) 07/08/23 13:25 Baso # (Auto) 0.0 X10*3/uL (0.0-0.2) 07/08/23 13:25 Abs Immat Gran (auto) 0.01 X10*3/uL (0.00-0.03) 07/08/23 13:25 Absolute Neuts (auto) 4.9 x10*3/uL (2.0-8.3) 07/08/23 13:25 Absolute Nucleated RBC 0.000 X10*3/uL (0.0-0.012) 07/09/23 06:19 Nucleated RBC % (auto) 0.0 /100WBC (0.0-0.2) 07/09/23 06:19 PT 15.1 SEC (11.1-13.3) H 07/08/23 17:28 INR 1.2 (0.9-1.1) H 07/08/23 17:28 Sodium 137 mmol/L (135-145) 07/09/23 06:19 Potassium 3.4 mmol/L (3.3-5.1) 07/09/23 06:19 Chloride 105 mmol/L (96-108) 07/09/23 06:19 Carbon Dioxide 23 mmol/L (22-29) 07/09/23 06:19 Anion Gap 12 (12-20) 07/09/23 06:19 BUN 16 mg/dL (9-16) 07/09/23 06:19 Creatinine 0.93 mg/dL (0.5-1.4) 07/09/23 06:19 Estim Creat Clear Calc 100.2 07/09/23 06:19 Estimated GFR > 60 07/09/23 06:19 Random Glucose 178 mg/dL (60-115) H 07/09/23 06:19 Calcium 8.2 mg/dL (8.4-10.2) L D 07/09/23 06:19 Magnesium 2.2 mg/dL (1.6-2.6) 07/08/23 17:28 Troponin I High Sens 5.5 ng/L (<3.5-35.0) 07/08/23 17:28 B-Natriuretic Peptide 210 pg/mL (<100) H 07/08/23 17:27 TSH 0.53 uIU/mL (0.32-4.0) 07/08/23 17:27 COVID-19 (CHRISTOPHER) Negative (Negative) 07/08/23 13:25 COVID-19 Clin Com See Note 07/08/23 13:25 Influenza Type A (SOFIYA) Negative (Negative) 07/08/23 13:25 Influenza Type B (SOFIYA) Negative (Negative) 07/08/23 13:25 Influenza A & B Note See Note 07/08/23 13:25 Impressions Chest X-Ray 07/08/23 17:35 IMPRESSION: Suspect mild pulmonary vascular congestion or edema. No pleural effusion seen. TTE 07/09/23 1. Mildly to moderately reduced LV ejection fraction 40-45% 2. Normal cardiac valvular Dopplers 3. Normal RV systolic pressure Labs on day of discharge: Discharge Plan Discharge Anticipated Discharge Date/Time: 07/09/23 12:25 Patient Disposition: Home, Self-Care Discharge Diagnosis: atrial fibrillation, CHF Referrals: [facility] [place] Primary Conchis Hernández [Provider Group] - 1 Week Physician,Helen [Primary Care Provider] - 1 Week Shahbaz Stephenson MD [Physician] - 2 Weeks Discharge Medications: New metoprolol succinate 50 mg Tablet Extended Release 24 Hr 50 mg PO DAILY Qty: 30 0RF Protocol: Hold for SBP/HR < HOLD for SBP < : 90 HOLD for HR < : 60 Xarelto 20 mg Tablet 20 mg PO DAILY@1700 Qty: 30 0RF Discharge Orders: Discharge Order (Routine); Ordered 07/09/23 Ordered By: Daryl Echols Diet: Advance to usual diet Activity on Discharge: As tolerated Stand Alone Forms: Patient Portal Discharge page Care Plan Goals: control atrial fibrillation Health Concerns: atrial fibrillation heart failure with reduced ejection fraction Plan of Treatment: take metoprolol succinate 50 mg once daily take rivaroxaban 20 mg once daily limit sodium to 2000 mg/d [place] [facility] [place] primary care ANGELA Assessment: See Discharge Summary.
--- NOTE | 2023-07-09 14:28 | MHC.CM.PN ---
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 PT REPORTS HE RENTS A ROOM, IS INDEP W/ALL CARE, DRIVES AND CAR IN [facility] LOT, PT DENIES USE OF DME/SERVICES. GOALS FOR DC ASSISTANCE W/MH AND PT DID COMPLETE A HCP NAMING HIS EXWIFE LOVE GAMEZ (# ON FILE) HIS HCA, NO ALTERNATE CHOSEN, PT PROVIDED W/LITHUANIAN EDUCATIONAL HANDOUT, ORIGINAL AND ONE COPY FOR HIS HCA, COPY UPLOADED TO [employer] AND PLACED IN CHART. COVID VACC X3
[2023-07-09 15:14] LABS: Estimated Average Glucose 120 mg/dL; Hemoglobin A1c % 5.8 % (<6.0)
--- NOTE | 2023-07-09 15:32 | MHC.CM.PN ---
PT MEDICALLY CLEARED FOR DC HOME SELF CARE AND NEW SCRIPTS FOR METOPROLOL AND XERELTO, CM CALLED IN FREE 30DAY SUPPLY DISCOUNT CARD FOR XERELTO FOR PT'S PHARMACY AND MET W/PT VIA SLIVER LAPPER AT BEDSIDE TO GIVE INSTRUCTIONS TO CALL DR RABAGO'S OFFICE TO SCHEDULE FOLLOW UP ONCE HE RECEIVES CALL FROM FS THAT HIS INSURANCE IS IN EFFECT, PT VERBALIZES UNDERSTANDING AND WILL SELF TRANSPORT.
== END 2023-07-09 16:13 | disposition home or self-care (01) | DRG 201 ==
LOC: HO.ED 19:38 → HO.EDOVER 20:51 → HO.IMC 07-09 03:21
PROVIDERS: Nurse Practitioner Family; Physician Assistant; Admitting Provider Student in an Organized Health Care Education/Training Program; Emergency Provider Student in an Organized Health Care Education/Training Program; Visit Provider Family Medicine
DX: I48.91 Unspecified atrial fibrillation (principal); I50.20 Unspecified systolic (congestive) heart failure; I11.0 Hypertensive heart disease with heart failure; F17.210 Nicotine dependence, cigarettes, uncomplicated; Z71.6 Tobacco abuse counseling; Z20.822 Contact with and (suspected) exposure to COVID-19
CPT/HCPCS: 36415; 71046; 80048; 83036; 83735; 83880; 84443; 84484; 85025; 85027; 85610; 87502; 87635; 93005; 93306; 99285; Q9957

== ENCOUNTER → 2023-07-08 16:59 | Outpatient (BNV) | payer MEDICAID, SELFPAY | PROVIDERS: Admitting Provider Student in an Organized Health Care Education/Training Program; Emergency Provider Student in an Organized Health Care Education/Training Program; Visit Provider Internal Medicine Cardiovascular Disease | DX: R94.31 Abnormal electrocardiogram [ECG] [EKG] (principal) | CPT/HCPCS: 93010 ==

== ENCOUNTER → 2023-07-08 20:38 | Outpatient (BNV) | payer MEDICAID, SELFPAY | PROVIDERS: Admitting Provider Student in an Organized Health Care Education/Training Program; Emergency Provider Student in an Organized Health Care Education/Training Program; Visit Provider Student in an Organized Health Care Education/Training Program | DX: I48.91 Unspecified atrial fibrillation (principal); I50.20 Unspecified systolic (congestive) heart failure | CPT/HCPCS: 99222; 99239 ==

== ENCOUNTER 2023-07-08 21:20 | Outpatient (BNV) | payer MEDICAID, SELFPAY | END 2023-07-09 07:00 | PROVIDERS: Admitting Provider Student in an Organized Health Care Education/Training Program; Emergency Provider Student in an Organized Health Care Education/Training Program; Visit Provider Internal Medicine Cardiovascular Disease | DX: I48.91 Unspecified atrial fibrillation (principal) | CPT/HCPCS: 93306 ==

== ENCOUNTER → 2023-07-08 21:20 | Outpatient (BNV) | payer MEDICAID, SELFPAY | PROVIDERS: Admitting Provider Student in an Organized Health Care Education/Training Program; Emergency Provider Student in an Organized Health Care Education/Training Program; Visit Provider Internal Medicine Cardiovascular Disease | DX: I48.91 Unspecified atrial fibrillation (principal) | CPT/HCPCS: 99222 ==